=== PATIENT | male | born 1995 | race Hispanic/Latino ===

== ENCOUNTER 2023-12-16 11:26 | Emergency (ER) | payer OTHER ==
[~2023-12-16] VITALS: Ht 172.7 cm; Wt 90.7 kg
[2023-12-16 11:49] LABS: APPEARANCE,URINE CLEAR (CLEAR); BILIRUBIN,URINE NEGATIVE (NEGATIVE); COLOR,URINE LIGHT-YELLOW (YELLOW); GLUCOSE, URINE (UA) NEGATIVE (NEGATIVE); KETONES,URINE 10 mg/dL (NEGATIVE); LEUKOCYTE ESTERASE ,URINE NEGATIVE Leu/uL (NEGATIVE); NITRATE,URINE NEGATIVE (NEGATIVE); OCCULT BLOOD,URINE SMALL (NEGATIVE); PROTEIN,URINE 30 mg/dL (NEGATIVE); UROBILINOGEN,URINE 0.2 mg/dL (0.2-1.0)
[2023-12-16 11:53] LABS: ADD UA MICROSCOPIC YES
[2023-12-16 11:53] LABS: HEMATOCRIT 49.9 % (42-54); MEAN CORPUSCULAR HGB CONC 34.5 g/dL (32.0-36.0); MEAN CORPUSCULAR VOLUME 86.9 fL (79-99); RED BLOOD CELL COUNT(AUTO) 5.74 MIL/uL (4.50-6.20); RED CELL DISTRIBUTION WIDTH 12.6 % (11.0-15.5); WHITE BLOOD COUNT (AUTO) 15.8 K/uL (4.8-10.8)
[2023-12-16] MEDS: METOCLOPRAMIDE 10 MG/2 ML VIAL ONE (11:54)
[2023-12-16] MEDS: METOCLOPRAMIDE 10 MG/2 ML VIAL IVP SCH (11:55)
[2023-12-16] MEDS: KETOROLAC 30MG VIAL (30MG/ML) IVP ONE (11:55)
[2023-12-16] MEDS: FAMOTIDINE 20MG VIAL IV ONE (11:55)
[2023-12-16] MEDS: 0.9%NACL 1000ML 1,000 ML IV ONE (11:55)
[2023-12-16 12:05] LABS: CREATININE 1.5 mg/dL (0.5-1.3); POTASSIUM 3.8 mmol/L (3.5-5.1)
[2023-12-16 12:08] LABS: MUCUS,URINE RARE LPF (None Seen); SQUAMOUS EPITHELIAL CELL,UR FEW /HPF (0-2)
[2023-12-16] MEDS ORDERED: TAMS-1 PO (14:15)
[2023-12-16] MEDS ORDERED: FAMO-136 PO (14:15)
[2023-12-16] MEDS ORDERED: METO-296 PO (14:15)
[2023-12-16] MEDS ORDERED: KETO10 PO (14:15)
[2023-12-16] MEDS: TAMSULOSIN HCL 0.4 MG CAP.ER.24H PO ONE (14:40)
[2023-12-16 14:42] VITALS: BP 128/66; PULSE 59; RESP 17; O2SAT 96
== END 2023-12-16 14:57 | disposition home or self-care (01) ==
LOC: EDH 11:26
DX: N13.2 Hydronephrosis with renal and ureteral calculous obstruction (principal); Z87.442 Personal history of urinary calculi; Z88.0 Allergy status to penicillin
CPT/HCPCS: 99285; 74176; 96374; 96375; 80048; 85027; 81001; 36415; J3490; J7030; J1885; J2765